=== PATIENT | female | born 1995 | race Caucasian/White ===

== ENCOUNTER 2018-02-02 20:42 | Emergency (ER) | payer OTHER, MEDICAID ==
[2018-02-02 20:42] VITALS: BMI 32.8
[2018-02-02 21:20] VITALS: BP 135/82; PULSE 61; RESP 16; TEMP 98.8; O2SAT 96
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
--- NOTE | 2018-02-03 09:55 | RAD ---
PROCEDURE: Cervical spine dated 02/02/2018 Multiple views of the cervical spine performed. Note that the examination is limited due to obscuration of the odontoid by overlying occiput in the open-mouth projection HISTORY: Pain. COMPARISON: None. FINDINGS: BONES: Alignment maintained. No fracture. Dens incompletely visualized DISC SPACES: Normal. SOFT TISSUES: Normal. No prevertebral soft tissue swelling. OTHER FINDINGS: None. IMPRESSION: Limited study as above. No evidence of acute displaced fracture nor dislocation so far as can be seen. Consider followup imaging studies such as CT scan or MRI if further evaluation is required.
== END 2018-02-02 23:49 | disposition home or self-care (01) ==
LOC: ED 20:42
DX: S16.1XXA Strain of muscle, fascia and tendon at neck level, initial encounter (principal); S46.911A Strain of unspecified muscle, fascia and tendon at shoulder and upper arm level, right arm, initial encounter; S46.912A Strain of unspecified muscle, fascia and tendon at shoulder and upper arm level, left arm, initial encounter; V49.49XA Driver injured in collision with other motor vehicles in traffic accident, initial encounter; Y92.410 Unspecified street and highway as the place of occurrence of the external cause
CPT/HCPCS: 72050; 81025; 96372; 99284; J1885